=== PATIENT | male | born 1955 | race Caucasian/White ===

== ENCOUNTER 2022-07-11 11:17 | Emergency (ER) | payer BC ==
[~2022-07-11] VITALS: Ht 149.9 cm; Wt 64.0 kg
[2022-07-11 11:21] VITALS: BP 175/84
--- NOTE | 2022-07-11 11:28 | NUR ---
AMB TO BED 9
--- NOTE | 2022-07-11 11:52 | NUR ---
ASSUMED PATIENT CARE, NURSING ASSESSMENT COMPLETED.
[2022-07-11] MEDS ORDERED: IBUPROFEN 600 MG TAB PO ONE (12:15)
[2022-07-11] MEDS ORDERED: IBUP-2213 PO (12:55)
[2022-07-11] MEDS ORDERED: CEPH-588 PO (12:55)
[2022-07-11 13:06] VITALS: BP 145/75
--- NOTE | 2022-07-11 13:07 | NUR ---
Patient discharged with v/s stable. Written and verbal after care instructions given and explained. Patient alert, oriented and verbalized understanding of instructions. Ambulatory with steady gait. All questions addressed prior to discharge. ID band removed. Patient advised to follow up with PMD. Rx of KEFLEX, IBUPROFEN given. Patient educated on indication of medication including possible reaction and side effects. Opportunity to ask questions provided and answered.
== END 2022-07-11 13:06 | disposition home or self-care (01) ==
LOC: MED 11:17
DX: S91.332A Puncture wound without foreign body, left foot, initial encounter (principal); Z91.040 Latex allergy status; Z79.899 Other long term (current) drug therapy; X58.XXXA Exposure to other specified factors, initial encounter; Y93.89 Activity, other specified; Y92.89 Other specified places as the place of occurrence of the external cause; Y99.8 Other external cause status
CPT/HCPCS: 73630; 90471; 90715; 99283